=== PATIENT | female | born 1965 | race Caucasian/White ===

== ENCOUNTER 2019-06-09 13:43 | Emergency (ER) | payer OTHER ==
[2019-06-09 14:13] LABS: Absolute Lymphocytes (CBC) 1.7 K/uL (0.7-4.9); Basophils % 0.8 % (0-1.3); Hematocrit 40.3 % (36.0-45.0); Lymphocytes % 41.4 % (15.3-44.8); MPV 7.9 fL (7.6-11.3); RBC Red Blood Cell Count 4.53 M/uL (3.86-4.86)
[2019-06-09 14:16] LABS: Protime INR 0.98
--- NOTE | 2019-06-09 14:25 | ER ---
Nurse's Notes [facility] Name: Ruthann Malcolm Age: 54 yrs Sex: Female : 1965 Arrival Date: 06/09/2019 Time: 13:47 Bed 6 Private MD: Diagnosis: Abrasion, right lower leg Presentation: 06/09 13:49 Presenting complaint: [place] when I felt something on my right natarajan then I saw a small snake on the ground which I think was a rattlesnake. Transition of care: patient was not received from another setting of care. Onset of symptoms was June 09, 2019. Risk Assessment: Do you want to hurt yourself or someone else? Patient reports no desire to harm self or others. Initial Sepsis Screen: Does the patient meet any 2 criteria? No. Patient's initial sepsis screen is negative. Does the patient have a suspected source of infection? No. Patient's initial sepsis screen is negative. Care prior to arrival: None. 13:49 Method Of Arrival: Ambulatory la1 13:49 Acuity: JANICE 2 la1 Historical: - Allergies: 13:51 PENICILLINS; la1 13:51 Sulfa (Sulfonamide Antibiotics); la1 - PMHx: 13:51 None; la1 - Immunization history:: Adult Immunizations up to date, Last tetanus immunization: < 5 years ago 2016. - Social history:: Smoking status: Patient/guardian denies using tobacco, Patient/guardian denies using alcohol, street drugs, The patient lives with family. - Ebola Screening: : No symptoms or risks identified at this time. - Family history:: not pertinent. Screenin:53 Abuse screen: Denies threats or abuse. Denies injuries from another. Nutritional ss screening: No deficits noted. Tuberculosis screening: Never had TB. Fall Risk None identified. Assessment: 13:55 General: Appears in no apparent distress. uncomfortable, Behavior is calm, cooperative, jl7 appropriate for age. Pain: Denies pain. Neuro: Level of Consciousness is awake, alert, obeys commands, Oriented to person, place, time, situation. Cardiovascular: Patient's skin is warm and dry. Respiratory: Airway is patent Respiratory effort is even, unlabored, Respiratory pattern is regular, symmetrical. Derm: Skin two small abrasions noted to right natarajan Skin is pink, warm \T\ dry. Vital Signs: 13:51 BP 140 / 95; Pulse 89; Resp 16; Temp 98.7; Pulse Ox 100% on R/A; Weight 56.7 kg; Height la1 5 ft. 5 in. (165.10 cm); 13:51 Body Mass Index 20.80 (56.70 kg, 165.10 cm) la1 ED Course: 13:47 Patient arrived in ED. mr 13:48 Ania Trinh MD is Attending Physician. ma2 13:50 Triage completed. la1 13:51 Arm band placed on right wrist. la1 13:53 Evan Mcintyre RN is Primary Nurse. jl7 13:53 Inserted saline lock: 20 gauge in right antecubital area, using aseptic technique. ss Blood collected. 13:55 Patient has correct armband on for positive identification. Placed in gown. Bed in low jl7 position. Call light in reach. Side rails up X 1. Pulse ox on. NIBP on. 14:51 No provider procedures requiring assistance completed. IV discontinued, intact, jl7 bleeding controlled, No redness/swelling at site. Pressure dressing applied. Administered Medications: No medications were administered Outcome: 14:25 Discharge ordered by . ma2 14:51 Discharged to home ambulatory. jl7 14:51 Condition: stable 14:51 Discharge instructions given to patient, Instructed on discharge instructions, follow up and referral plans. Demonstrated understanding of instructions, follow-up care. 14:52 Patient left the ED. jl7 Signatures: Susan Rodriguez Dianne Cooley RN RN Ric Parker RN RN la1 Evan Mcintyre, MAUREEN REDDY jl7 Ania Trinh MD MD ma2
--- NOTE | 2019-06-09 14:26 | EDPHYS ---
Physician Documentation [facility] Name: Ruthann Malcolm Age: 54 yrs Sex: Female : 1965 Arrival Date: 06/09/2019 Time: 13:47 Bed 6 Private MD: ED Physician Ania Trinh HPI: 06/09 14:23 This 54 yrs old Female presents to ER via Ambulatory with complaints of Snake ma2 bite. 14:23 The patient was bitten on the right leg, by rattle snake. Onset: The symptoms/episode ma2 began/occurred acutely, suddenly, 1 hour(s) ago. Secondary to the bite the patient reports an abrasion. Associated signs and symptoms: Pertinent negatives: erythema at site, fluctuance, numbness distal to wound, suspected foreign body, swelling at site. Severity of symptoms: At their worst the symptoms were very mild, in the emergency department the symptoms have resolved. The patient has not experienced similar symptoms in the past. Historical: - Allergies: 13:51 PENICILLINS; la1 13:51 Sulfa (Sulfonamide Antibiotics); la1 - PMHx: 13:51 None; la1 - Immunization history:: Adult Immunizations up to date, Last tetanus immunization: < 5 years ago 2017. - Social history:: Smoking status: Patient/guardian denies using tobacco, Patient/guardian denies using alcohol, street drugs, The patient lives with family. - Ebola Screening: : No symptoms or risks identified at this time. - Family history:: not pertinent. ROS: 14:23 Constitutional: Negative for fever, chills, and weight loss. ma2 14:23 All other systems are negative. Exam: 14:23 Constitutional: This is a well developed, well nourished patient who is awake, alert, ma2 and in no acute distress. Head/Face: Normocephalic, atraumatic. Eyes: Pupils equal round and reactive to light, extra-ocular motions intact. Lids and lashes normal. Conjunctiva and sclera are non-icteric and not injected. Cornea within normal limits. Periorbital areas with no swelling, redness, or edema. ENT: Nares patent. No nasal discharge, no septal abnormalities noted. Tympanic membranes are normal and external auditory canals are clear. Oropharynx with no redness, swelling, or masses, exudates, or evidence of obstruction, uvula midline. Mucous membranes moist. Neck: Trachea midline, no thyromegaly or masses palpated, and no cervical lymphadenopathy. Supple, full range of motion without nuchal rigidity, or vertebral point tenderness. No Meningismus. Chest/axilla: Normal chest wall appearance and motion. Nontender with no deformity. No lesions are appreciated. Cardiovascular: Regular rate and rhythm with a normal S1 and S2. No gallops, murmurs, or rubs. Normal PMI, no JVD. No pulse deficits. Respiratory: Lungs have equal breath sounds bilaterally, clear to auscultation and percussion. No rales, rhonchi or wheezes noted. No increased work of breathing, no retractions or nasal flaring. Abdomen/GI: Soft, non-tender, with normal bowel sounds. No distension or tympany. No guarding or rebound. No evidence of tenderness throughout. MS/ Extremity: abrasion right mid chin, Pulses equal, no cyanosis. Neurovascular intact. Full, normal range of motion. Neuro: Awake and alert, GCS 15, oriented to person, place, time, and situation. Cranial nerves II-XII grossly intact. Motor strength 5/5 in all extremities. Sensory grossly intact. Cerebellar exam normal. Normal gait. Vital Signs: 13:51 BP 140 / 95; Pulse 89; Resp 16; Temp 98.7; Pulse Ox 100% on R/A; Weight 56.7 kg; Height la1 5 ft. 5 in. (165.10 cm); 13:51 Body Mass Index 20.80 (56.70 kg, 165.10 cm) la1 MDM: 13:49 Patient medically screened. ma2 14:23 Differential diagnosis: abrasion. Data reviewed: vital signs, nurses notes. Counseling: ma2 I had a detailed discussion with the patient and/or guardian regarding: the historical points, exam findings, and any diagnostic results supporting the discharge/admit diagnosis, the presence of at least one elevated blood pressure reading (>120/80) during this emergency department visit, tdap utd. 06/09 13:52 Order name: CMP ma2 06/09 13:52 Order name: CBC with Diff ma2 06/09 13:52 Order name: [id number] ma2 06/09 13:52 Order name: Ptt, Activated ma2 Administered Medications: No medications were administered Disposition: 06/09/19 14:25 Discharged to Home. Impression: Abrasion, right lower leg. - Condition is Stable. - Discharge Instructions: Abrasion, Snake Bite. - Medication Reconciliation Form, Thank You Letter, Antibiotic Education, Prescription Opioid Use form. - Follow up: Private Physician; When: Tomorrow; Reason: Continuance of care. Signatures: Dispatcher [employer] EDMS Ric Parker RN RN la1 Evan Mcintyre RN RN jl7 Ania Trinh MD MD ma2 Corrections: (The following items were deleted from the chart) 14:52 14:25 06/09/2019 14:25 Discharged to Home. Impression: Abrasion, right lower leg. jl7 Condition is Stable. Forms are Medication Reconciliation Form, Thank You Letter, Antibiotic Education, Prescription Opioid Use. Follow up: Private Physician; When: Tomorrow; Reason: Continuance of care. ma2
[2019-06-09 14:42] LABS: Albumin 4.1 g/dL (3.4-5.0); Bilirubin Total 0.5 mg/dL (0.2-1.0); Potassium 3.8 mmol/L (3.5-5.1); Protein, Total 7.4 g/dL (6.4-8.2)
[2019-06-09 15:08] VITALS: BP 140/95; TEMP 98.7; O2SAT 100
== END 2019-06-09 14:52 | disposition home or self-care (01) ==
LOC: ER 13:43
DX: S80.811A Abrasion, right lower leg, initial encounter (principal); W59.11XA Bitten by nonvenomous snake, initial encounter; Y93.89 Activity, other specified; Y92.832 Beach as the place of occurrence of the external cause; Z88.0 Allergy status to penicillin; Z88.2 Allergy status to sulfonamides
CPT/HCPCS: 36415; 80053; 85025; 85610; 85730; 99283